=== PATIENT | female | born 1960 | race Caucasian/White ===

== ENCOUNTER → 2016-12-06 | Outpatient (CLI) | payer MEDICARE, MEDICAID | END | disposition home or self-care (01) | LOC: MRI 09:24 | PROVIDERS: ATTEND Neurological Surgery | DX: M54.9 Dorsalgia, unspecified (principal) | CPT/HCPCS: 72146 ==

== ENCOUNTER → 2017-02-27 | Day surgery (SDC) | payer MEDICARE, MEDICAID ==
[~2017-02-27] VITALS: Ht 157.5 cm; Wt 120.2 kg
[~2017-02-27] MED LIST: ATOR20TA65 PO; CALC-889 PO; DICL75TA5 PO; FERR-63 PO; FOLI-43 PO; FURO40TA5 PO; HYDR-3927 PO; LISI10TA5 PO; METF500T4 PO; OMEP40CA34 PO; POTA10TA70 PO; SODIUM CHLORIDE 0.9% 1,000 ML IV SCH; TIZA4TAB4 PO
[2017-02-27 10:26] LABS: BASOPHILS % 1.2 % (0.0-2.0); EOSINOPHILS % 3.9 % (0.0-5.0); HEMATOCRIT. 41.3 % (36.0-48.0); HEMOGLOBIN. 13.7 g/dL (12.0-16.0); LYMPHOCYTES % 30.4 % (20.0-50.0); MEAN CORPUSCULAR HEMOGLOBIN 30.5 pg (28.0-32.0); MEAN CORPUSCULAR VOLUME 91.6 fL (81.0-99.0); MEAN PLATELET VOLUME 8.3 fl (7.4-10.4); NEUTROPHILS % 58.5 % (40.0-76.0); PLATELET 85 x1000/uL (130-400); RED BLOOD CELL COUNT 4.51 mill/uL (4.2-5.4); RED CELL DISTRIBUTION WIDTH 14.3 % (11.6-14.6)
[2017-02-27 10:33] LABS: CHLORIDE 105 mEq/L (98-107)
[2017-02-27 10:38] LABS: CARBON DIOXIDE 31 mEq/L (21-32)
== END | disposition home or self-care (01) ==
LOC: OR 09:00
PROVIDERS: ATTEND Internal Medicine Gastroenterology
DX: I85.00 Esophageal varices without bleeding (principal); E11.9 Type 2 diabetes mellitus without complications; I10 Essential (primary) hypertension; M19.90 Unspecified osteoarthritis, unspecified site; E78.00 Pure hypercholesterolemia, unspecified; Z53.9 Procedure and treatment not carried out, unspecified reason
CPT/HCPCS: 36415; 80048; 82962; 85025; 93005; J7030